=== PATIENT | male | born 1995 | race Caucasian/White ===

== ENCOUNTER 2021-09-01 10:20 | Emergency (ER) | payer MEDICAID ==
[~2021-09-01] VITALS: Ht 177.8 cm; Wt 115.0 kg
[2021-09-01 10:30] VITALS: BP 171/108
[2021-09-01] MEDS ORDERED: TETANUS, DIPHTHERIA, PERTUSSIS VAC/PF 0.5ML (>10YR OLD) IM ONE (10:30)
[2021-09-01] MEDS ORDERED: BACITRACIN ZINC OINT UDPKT TOP ONE (10:30)
[2021-09-01] MEDS ORDERED: LIDOCAINE HCL/EPINEPHRINE 1%-EPI 1:100,000 20 ML VIAL INFIL ONE (10:30)
[2021-09-01] MEDS ORDERED: LIDOCAINE HCL/EPINEPHRINE 1%-EPI 1:100,000 10 ML VIAL INFIL NR (12:00)
== END 2021-09-01 13:25 | disposition home or self-care (01) ==
LOC: ER 10:20
DX: S01.312A Laceration without foreign body of left ear, initial encounter (principal); W27.8XXA Contact with other nonpowered hand tool, initial encounter; Y93.89 Activity, other specified; Y92.018 Other place in single-family (private) house as the place of occurrence of the external cause
CPT/HCPCS: 90471; 90715; 99283; J3490